=== PATIENT | female | born 1985 | race African-American/Black ===

== ENCOUNTER 2025-01-10 07:22 | Emergency (ER) | payer OTHER ==
[~2025-01-10] VITALS: Ht 154.9 cm; Wt 81.0 kg
[~2025-01-10 07:22] MED LIST: ALBU18HF2 PO; DUPI200S SQ; FLUT1BLS IH; IPRA3AMP9 HHN; METH4TAB95 MT
[2025-01-10 07:32] VITALS: O2SAT 100
[2025-01-10] MEDS ORDERED: ONDANSETRON HCL 4MG/2ML INJ IV STA (07:42)
[2025-01-10] MEDS ORDERED: KETOROLAC 30MG/ML VIAL IV STA (07:42)
[2025-01-10] MEDS: SODIUM CHLORIDE 0.9% 1,000 ML IV ONE (07:45)
[2025-01-10] MEDS ORDERED: FAMOTIDINE 20MG/2ML VIAL IV ONE (07:45)
[2025-01-10 08:43] LABS: BASOPHILS % 0.7 % (0.0-2.0); EOSINOPHILS % 1.3 % (0.0-5.0); HEMATOCRIT. 39.3 % (36.0-48.0); HEMOGLOBIN. 13.5 g/dL (12.0-16.0); LYMPHOCYTES % 18.5 % (20.0-50.0); MEAN CORPUSCULAR HEMOGLOBIN 31.3 pg (28.0-32.0); MEAN CORPUSCULAR HGB CONC 34.5 g/dL (31.0-37.0); MEAN CORPUSCULAR VOLUME 90.9 fL (81.0-99.0); MEAN PLATELET VOLUME 8.8 fl (7.4-10.4); MONOCYTES % 5.5 % (2.0-8.0); PLATELET 280 x1000/uL (130-400); RED BLOOD CELL COUNT 4.32 mill/uL (4.2-5.4)
[2025-01-10 08:51] LABS: CHLORIDE 105 mEq/L (98-107); SODIUM 138 mEq/L (136-145)
[2025-01-10 08:52] LABS: CALCIUM 10.1 mg/dL (8.7-10.4); CARBON DIOXIDE 20 mEq/L (21-32)
[2025-01-10 08:57] LABS: CREATININE 0.8 mg/dL (0.6-1.0); GLUCOSE 91 mg/dL (70-105); UREA NITROGEN BLOOD 7 mg/dL (9-23)
[2025-01-10 09:03] LABS: HCG SCREEN NEGATIVE
[2025-01-10] MEDS: POTASSIUM CHLORIDE 20MEQ/PACKET PO ONE (09:15)
[2025-01-10] MEDS: FAMOTIDINE 20MG/2ML VIAL IV SCH (09:45)
[2025-01-10] MEDS: ONDANSETRON HCL 4MG/2ML INJ IV SCH (09:45)
[2025-01-10] MEDS: KETOROLAC 30MG/ML VIAL IV SCH (09:45)
[2025-01-10] MEDS ORDERED: ONDA4TAB50 MT (10:07)
[2025-01-10 10:14] LABS: CLARITY URINE CLEAR (CLEAR); COLOR URINE YELLOW (YELLOW); GLUCOSE URINE NEGATIVE (NEGATIVE); KETONES URINE 3+ (NEGATIVE); LEUKOCYTE ESTERASE URINE NEGATIVE (NEGATIVE); NITRITE URINE NEGATIVE (NEGATIVE); OCCULT BLOOD URINE NEGATIVE (NEGATIVE); PROTEIN URINE NEGATIVE (NEGATIVE); SPECIFIC GRAVITY URINE 1.014 (1.005-1.030)
[2025-01-10] MEDS: ONDANSETRON HCL 4MG/2ML INJ IV ONE (11:00)
[2025-01-10] MEDS ORDERED: KCL 10MEQ/50ML PREMIX 50 ML IV ONE (11:00)
[2025-01-10 12:07] VITALS: TEMP 36.7
[2025-01-10] MEDS: KCL 10MEQ/50ML PREMIX 50 ML IV NR (12:25)
[2025-01-10 14:02] VITALS: BP 128/66; PULSE 112; RESP 14; O2SAT 98
== END 2025-01-10 14:11 | disposition short-term general hospital (02) ==
LOC: ER 07:22 → CANBEDREQ 11:42 → ER 14:11
DX: R11.2 Nausea with vomiting, unspecified (principal); E87.6 Hypokalemia; J45.909 Unspecified asthma, uncomplicated; Z79.51 Long term (current) use of inhaled steroids
CPT/HCPCS: 80048; 81003; 84703; 83690; 85025; 36415; 96361; 96365; 96375; 96376; 99285; J3490; J1885; J2405; J3480; J7030; Z7610; A4606

== ENCOUNTER 2025-04-25 10:15 | Emergency (ER) | payer OTHER ==
[~2025-04-25] VITALS: Ht 167.6 cm; Wt 77.0 kg
[~2025-04-25 10:15] MED LIST changes: +ONDA4TAB50 MT
[2025-04-25 10:17] VITALS: O2SAT 97
[2025-04-25] MEDS: SODIUM CHLORIDE 0.9% 1,000 ML IV ONE (11:19)
[2025-04-25 11:38] LABS: BASOPHILS % 0.9 % (0.0-2.0); EOSINOPHILS % 2.6 % (0.0-5.0); HEMATOCRIT. 36.9 % (36.0-48.0); HEMOGLOBIN. 12.6 g/dL (12.0-16.0); LYMPHOCYTES % 24.2 % (20.0-50.0); MEAN PLATELET VOLUME 9.5 fl (7.4-10.4); MONOCYTES % 6.2 % (2.0-8.0); NEUTROPHILS % 66.1 % (40.0-76.0); PLATELET 279 x1000/uL (130-400); RED BLOOD CELL COUNT 4.05 mill/uL (4.2-5.4); RED CELL DISTRIBUTION WIDTH 13.1 % (11.6-14.6)
[2025-04-25] MEDS ORDERED: DIPHENOXYLATE/ATROPINE 2.5/0.025MG TABLET PO ONE (11:45)
[2025-04-25 11:51] LABS: HCG SCREEN NEGATIVE
[2025-04-25 11:53] LABS: CREATININE 0.7 mg/dL (0.6-1.0); UREA NITROGEN BLOOD 9 mg/dL (9-23)
[2025-04-25 11:54] LABS: ETHANOL BLOOD < 10 mg/dL (<10); TROPONIN I HIGH SENSITIVITY < 4 ng/L (3.0-34)
[2025-04-25] MEDS: DIPHENOXYLATE/ATROPINE 2.5/0.025MG TABLET PO NR (12:25)
[2025-04-25] MEDS: ONDANSETRON HCL 4MG/2ML INJ IV ONE (12:26)
[2025-04-25] MEDS: PANTOPRAZOLE SODIUM 40 MG/VIAL IV ONE (12:26)
[2025-04-25] MEDS ORDERED: TOPUD MT (13:19)
[2025-04-25] MEDS ORDERED: ONDA4TAB50 MT (13:19)
[2025-04-25] MEDS ORDERED: DIPH-1091 MT (13:19)
[2025-04-25] MEDS ORDERED: PANT40SU MT (13:19)
[2025-04-25 14:03] VITALS: BP 106/67; PULSE 95; RESP 17; TEMP 36.8; O2SAT 97
[2025-04-25 15:01] LABS: TROPONIN I HIGH SENSITIVITY < 4 ng/L (3.0-34)
== END 2025-04-25 14:04 | disposition home or self-care (01) ==
LOC: ER 10:15 → CANBEDREQ 13:29 → ER 14:04
DX: R11.2 Nausea with vomiting, unspecified (principal); J45.909 Unspecified asthma, uncomplicated; Z79.899 Other long term (current) drug therapy
CPT/HCPCS: 80048; 80320; 84703; 85025; 84484; 36415; 71045; 93005; 96361; 96374; 96375; 99285; J2405; J2470; J7030; Z7610; G0480

== ENCOUNTER 2025-06-19 09:24 | Emergency (ER) | payer OTHER ==
[~2025-06-19] VITALS: Ht 167.6 cm; Wt 64.0 kg
[~2025-06-19 09:24] MED LIST changes: +DIPH-1091 MT; +PANT40SU MT; +TOPUD MT
[2025-06-19 09:28] VITALS: O2SAT 100
[2025-06-19] MEDS: ADENOSINE 3 MG/ML 2ML VIAL IV ONE (09:38)
[2025-06-19 10:01] LABS: BASOPHILS % 0.7 % (0.0-2.0); EOSINOPHILS % 9.6 % (0.0-5.0); HEMATOCRIT. 40.3 % (36.0-48.0); HEMOGLOBIN. 13.0 g/dL (12.0-16.0); LYMPHOCYTES % 26.2 % (20.0-50.0); MEAN PLATELET VOLUME 8.5 fl (7.4-10.4); MONOCYTES % 6.1 % (2.0-8.0); NEUTROPHILS % 57.4 % (40.0-76.0); PLATELET 236 x1000/uL (130-400); RED BLOOD CELL COUNT 4.21 mill/uL (4.2-5.4); RED CELL DISTRIBUTION WIDTH 14.6 % (11.6-14.6)
[2025-06-19 10:26] LABS: CREATININE 0.9 mg/dL (0.6-1.0)
[2025-06-19 10:27] LABS: UREA NITROGEN BLOOD 9 mg/dL (9-23)
[2025-06-19 11:00] VITALS: BP 100/58; PULSE 100; RESP 18; TEMP 37; O2SAT 100
== END 2025-06-19 11:13 | disposition home or self-care (01) ==
LOC: ER 09:24
DX: I47.10 Supraventricular tachycardia, unspecified (principal); R00.2 Palpitations; R42 Dizziness and giddiness; J45.909 Unspecified asthma, uncomplicated; Z79.51 Long term (current) use of inhaled steroids; Z79.899 Other long term (current) drug therapy
CPT/HCPCS: 80048; 83735; 85025; 36415; 93005; 96374; 99291; J0153; Z7610

== ENCOUNTER 2025-07-11 15:14 | Emergency (ER) | payer MEDICAID, OTHER ==
[~2025-07-11] VITALS: Ht 172.7 cm; Wt 73.0 kg
[2025-07-11 15:16] VITALS: O2SAT 100
[2025-07-11] MEDS: HYDROXYZINE 25MG TABLET PO ONE (16:00)
[2025-07-11 16:58] LABS: BASOPHILS % 1.2 % (0.0-2.0); EOSINOPHILS % 7.0 % (0.0-5.0); HEMATOCRIT. 37.2 % (36.0-48.0); HEMOGLOBIN. 12.6 g/dL (12.0-16.0); LYMPHOCYTES % 28.4 % (20.0-50.0); MEAN PLATELET VOLUME 8.9 fl (7.4-10.4); MONOCYTES % 6.2 % (2.0-8.0); NEUTROPHILS % 57.2 % (40.0-76.0); PLATELET 259 x1000/uL (130-400); RED BLOOD CELL COUNT 3.94 mill/uL (4.2-5.4); RED CELL DISTRIBUTION WIDTH 14.4 % (11.6-14.6)
[2025-07-11 17:24] LABS: CREATININE 0.7 mg/dL (0.6-1.0)
[2025-07-11 17:25] LABS: UREA NITROGEN BLOOD 7 mg/dL (9-23)
[2025-07-11 17:45] LABS: TROPONIN I HIGH SENSITIVITY < 4 ng/L (3.0-34)
[2025-07-11] MEDS: POTASSIUM CHLORIDE 20MEQ TABLET SR PO ONE (17:51)
[2025-07-11] MEDS ORDERED: POTA-205 MT (18:07)
[2025-07-11] MEDS ORDERED: MAGN400C MT (18:08)
[2025-07-11] MEDS ORDERED: METO-293 MT (18:08)
[2025-07-11] MEDS: MAGNESIUM OXIDE 400MG TABLET PO ONE (18:29)
[2025-07-11 18:30] VITALS: BP 115/78; PULSE 67; RESP 16; TEMP 36.8; O2SAT 99
== END 2025-07-11 18:41 | disposition home or self-care (01) ==
LOC: ER 15:14
DX: R00.2 Palpitations (principal); E87.6 Hypokalemia; E83.42 Hypomagnesemia; F41.9 Anxiety disorder, unspecified; J45.909 Unspecified asthma, uncomplicated; Z79.51 Long term (current) use of inhaled steroids; Z79.899 Other long term (current) drug therapy
CPT/HCPCS: 36415; 71045; 80048; 83735; 84484; 85025; 93005; 99285